=== PATIENT | male | born 1995 ===

== ENCOUNTER → 2020-06-02 15:58 | Outpatient (CLI) | payer OTHER, SELFPAY ==
--- NOTE | 2020-06-02 | DI.MRI.S_ITS ---
PROCEDURE: MR LUMBAR SPINE WO CON INDICATIONS: low back pain TECHNIQUE: Noncontrast sagittal T1 spin echo and T2 fast echo, sagittal STIR, axial T1 and T2 fast spin echo through the lumbar spine. In cases with scoliosis, additional coronal T2 fast spin echo may be performed. COMPARISON: [facility] Outside Film, MR, MR LUMBAR SPINE WITHOUT CONTRAST, 10/06/2019, 9:34. [facility] Outside Film, CT, CT LUMBAR SPINE WITHOUT CONTRAST, 09/22/2019, 11:40. FINDINGS: Image quality: Excellent. Alignment and Curvature: There is normal bony alignment. Bone Marrow: Marrow is of normal overall signal. No acute vertebral body compression fractures. Spinal Cord: Conus medullaris terminates at the L1 level. Visualized cord demonstrates normal signal and size. Paraspinous Soft Tissues: No paravertebral masses. T12-L1: Normal appearance. L1-L2: Normal appearance. L2-L3: Normal appearance. L3-L4: Normal appearance. L4-L5: Moderate loss of disc height is seen. Loss of disc signal is seen. Moderate disc bulge is seen, with a central/left disc protrusion. Mild facet joint hypertrophy is seen. There is [id number] right-sided and moderate left-sided neural foraminal narrowing seen. Mild to moderate central canal narrowing is seen. Compared to the prior images, these degenerative changes are slightly progressed. L5-S1: The disc height is well-preserved. Loss of disc signal is seen at this level. Moderate disc bulge is seen, with a central disc protrusion, with an associated annular fissure. Mild facet joint hypertrophy is seen. There is moderate to severe bilateral neural foraminal narrowing seen. There is a degree of compression seen upon the exiting nerve roots. Mild to moderate central canal narrowing is seen. There is slight progression of degenerative change at this level compared to the prior MRI. 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 Dictated by: Nickolas Lamar M.D. on 06/02/2020 at 16:34 Approved by: Nickolas Lamar M.D. on 06/02/2020 at 16:36
== END ==
PROVIDERS: Referring Provider Orthopaedic Surgery; Visit Provider Orthopaedic Surgery
DX: M47.27 Other spondylosis with radiculopathy, lumbosacral region (principal); M54.5 Low back pain
CPT/HCPCS: 72148